=== PATIENT | male | born 1985 | race Caucasian/White ===

== ENCOUNTER 2020-04-01 21:16 | Emergency (ER) | payer OTHER, SELFPAY ==
[2020-04-01 21:19] VITALS: BP 110/77; PULSE 90; RESP 16; TEMP 36.5; O2SAT 96; BMI 26.7
--- NOTE | 2020-04-01 21:28 | ED_ITS ---
HPI - Wound/Laceration General Chief Complaint: Wound/Laceration Stated Complaint: laceration Time Seen by Provider: 04/01/20 21:27 Source: patient Mode of arrival: ambulatory Limitations: no limitations History of Present Illness Onset (ago): minute(s) (just [employer]PER[employer]) Extremity Location: right: hand Place: home Patient tetanus UTD: Yes Context: accidental and sharp object use (lid of a can) Associated symptoms: none Treatments prior to arrival: bandage Review of Systems Review of Systems: Constitutional : No Fever, No Chills, Cardiovascular : No Chest Pain, No SOB Respiratory : No Dyspnea Gastrointestinal : No abdominal pain Musculoskeletal : No Joint Swelling Skin : No rash, positive skin laceration Neuro : No Weakness, No Numbness PMFSH Past Medical History Attestation statement: The following information was validated with the patient. Medical History No known health problems Surgical History History of appendectomy Hx of tonsillectomy Social History Social History (Updated 04/01/20 @ 21:41 by Lupis Toure DO) Smoking Status: Never smoker Advance Directives: No Advance Directives Information Provided: No Physical Exam Vital Signs: Vital Signs: Last Vital Signs Temp 97.7 F 04/01/20 21:19 Pulse 90 04/01/20 21:19 Resp 16 04/01/20 21:19 BP 110/77 04/01/20 21:19 Pulse Ox 96 04/01/20 21:19 Body Mass Index 26.7 Appearance: Alert. Oriented X3. No acute distress. Eyes: Pupils equal, round and reactive to light. ENT: Pharynx normal. Neck: Normal inspection. Neck supple. CVS: Normal heart rate and rhythm. Pulses normal. Respiratory: No respiratory distress. Breath sounds normal. Abdomen: Soft and nontender. Skin: Skin warm and dry. Normal skin color. Normal skin turgor. R hand on palmar surface along 2nd MCP joint very superficial 0.5cm avulsion, full ROM, no tendon involvement Extremities: No lower extremity edema. No calf ttp Neuro: Oriented X 3. No motor deficit. No sensory deficit. Procedures Laceration Laceration 1: Site: upper extremity Side (If applicable): right Size (cm): 0.5 Description: flap and clean Depth: simple, single layer Pre-repair: wound explored and irrigated extensively Skin layer closed with: other (dermabond) MDM - Wound/Laceration MDM Narrative Medical decision making narrative: healthy 35 yo male with superficial skin avulsion - very superficial full ROM no signs of internal injury, no tendon injury, Tdap UTD, will dermabond area and send home with precautions Discharge Plan Discharge Clinical Impression: Avulsion of skin Patient Disposition: Home, Self-Care Instructions: Skin Avulsion (ED), Skin Adhesive Care (ED) Additional Instructions: return to ED for any worsening symptoms or concerns skin adhesive will fall off in 5 days, no soaking or washing dishes, showering is okay, nothing strenuous with the hand for the next 5 days til the wound is healed. Referrals: Chadd Evans, STAFFING CONSULTANT-[facility] [Primary Care Provider] - 5 days (if not better)
== END 2020-04-01 21:46 | disposition home or self-care (01) ==
PROVIDERS: Emergency Provider Emergency Medicine; PCP Nurse Practitioner Family
DX: S61.411A Laceration without foreign body of right hand, initial encounter (principal); M79.641 Pain in right hand; W26.8XXA Contact with other sharp object(s), not elsewhere classified, initial encounter; Y93.9 Activity, unspecified; Y92.000 Kitchen of unspecified non-institutional (private) residence as the place of occurrence of the external cause; Y99.9 Unspecified external cause status
CPT/HCPCS: 12001; 99284

== ENCOUNTER 2020-09-07 10:38 | Outpatient (REF) | payer OTHER, SELFPAY ==
--- NOTE | ~2020-09-07 | XR_ITS ---
EXAMINATION: XR TOES, LEFT CLINICAL INFORMATION: Pain great toe COMPARISON: None TECHNIQUE: AP view left foot and 2 views left great toe are obtained for 3 views. FINDINGS: There is mild hallux valgus first MTP approximately 20 degrees. There is no joint narrowing or erosive change or chondrocalcinosis. Bony mineralization is normal. There is no periarticular demineralization. No fracture or dislocation. XR/XR toe LT min 2V IMPRESSION: Mild hallux valgus first MTP. No joint narrowing or erosive change.
[2020-09-07 15:00] LABS: Alanine Aminotransferase 28 U/L (0-40); Albumin Level 4.9 g/dL (3.5-5.0); Alkaline Phosphatase 64 U/L (39-117); Anion Gap 15 (12-20); Aspartate Amino Transferase 26 U/L (5-37); Bilirubin Total 0.7 mg/dL (0.0-1.0); Blood Urea Nitrogen 15 mg/dL (9-16); Calcium 10.3 mg/dL (8.4-10.2); Carbon Dioxide 27 mmol/L (22-29); Chloride 106 mmol/L (96-108); Estimated Glomerular Filt Rate > 60; Glucose Random 82 mg/dL (60-115); Potassium 5.6 mmol/L (3.3-5.1); Sodium 142 mmol/L (135-145); Total Protein 7.3 g/dL (6.5-8.0); Uric Acid 7.1 mg/dL (3.4-7.0)
== END 2020-09-07 10:39 | disposition home or self-care (01) ==
LOC: HO.HMGCX 10:38
PROVIDERS: PCP Nurse Practitioner Family; Visit Provider Nurse Practitioner Family
DX: M79.675 Pain in left toe(s) (principal); S43.439A Superior glenoid labrum lesion of unspecified shoulder, initial encounter
CPT/HCPCS: 36415; 73660; 80053; 84550

== ENCOUNTER 2020-09-10 07:24 | Outpatient (REF) | payer OTHER, SELFPAY ==
[2020-09-10 12:02] LABS: Anion Gap 14 (12-20); Carbon Dioxide 26 mmol/L (22-29); Chloride 108 mmol/L (96-108); Sodium 144 mmol/L (135-145)
[2020-09-10 12:17] LABS: Alanine Aminotransferase 23 U/L (0-40); Albumin Level 4.5 g/dL (3.5-5.0); Alkaline Phosphatase 72 U/L (39-117); Anion Gap 12 (12-20); Aspartate Amino Transferase 23 U/L (5-37); Bilirubin Total 0.5 mg/dL (0.0-1.0); Blood Urea Nitrogen 15 mg/dL (9-16); Calcium 9.4 mg/dL (8.4-10.2); Carbon Dioxide 27 mmol/L (22-29); Chloride 108 mmol/L (96-108); Estimated Glomerular Filt Rate > 60; Glucose Random 51 mg/dL (60-115); Sodium 143 mmol/L (135-145); Total Protein 6.7 g/dL (6.5-8.0)
== END 2020-09-10 07:25 | disposition home or self-care (01) ==
LOC: HO.HMGCLDS 07:24
PROVIDERS: PCP Nurse Practitioner Family; Visit Provider Nurse Practitioner Family
DX: E78.5 Hyperlipidemia, unspecified (principal)
CPT/HCPCS: 36415; 80051; 80053

== ENCOUNTER 2020-09-11 07:05 | Outpatient (REF) | payer OTHER, SELFPAY ==
[2020-09-11 07:56] LABS: Glucose Random 88 mg/dL (60-115)
[2020-09-12 02:47] LABS: C Peptide 1.29 ng/mL (0.80-3.85)
[2020-09-12 07:12] LABS: Insulin Level Total 4.7 uIU/mL
[2020-09-19 13:42] LABS: Chlorpropamide None Detected; Glimepiride None Detected; Glipizide None Detected; Glyburide None Detected; Nateglinide None Detected; Pioglitazone None Detected; Repaglinide None Detected; Rosiglitazone None Detected; Tolazamide None Detected; Tolbutamide None Detected
[2020-09-23 08:32] LABS: Beta-Hydroxybutyrate 2.4 mg/dL (0.0-3.0)
== END 2020-09-11 07:06 | disposition home or self-care (01) ==
LOC: HO.LAB 07:05
PROVIDERS: Visit Provider Nurse Practitioner Family
DX: E16.2 Hypoglycemia, unspecified (principal)
CPT/HCPCS: 36415; 80337; 82010; 82947; 83525; 84206; 84681

== ENCOUNTER 2020-09-29 13:17 | Outpatient (REF) | payer OTHER, SELFPAY ==
--- NOTE | ~2020-09-29 | MR_ITS ---
EXAMINATION: MR SHOULDER WITH CONTRAST, LEFT CLINICAL INFORMATION: Left shoulder pain, mostly anterior. Aching. History of biceps tendon surgery. COMPARISON: None TECHNIQUE: MRI of the shoulder was performed following the intra-articular administration of a dilute gadolinium-containing solution (arthrogram) on a high-field scanner. FINDINGS: ROTATOR CUFF: Intact. No muscle atrophy or fatty infiltration. BICEPS: Status post tenodesis with attachment to the proximal humeral shaft anteriorly. CORACOACROMIAL ARCH: The undersurface of the acromion is curved with no subacromial spur. Minimal acromioclavicular osteoarthritis. LABRUM/CAPSULE: The superior labrum is blunted as a result of a prior tenodesis. As seen on images 15, 16, and 17/28 of series 14, there is a linear band of fluid signal undercutting a blunted anteroinferior labrum, most consistent with a labral tear between the anterior 3 o'clock position and inferior 6 o'clock position. Joint capsule is intact. GLENOHUMERAL JOINT/MARROW: Articular cartilage appears well preserved. No fracture or malalignment. No joint effusion. MR/MR shoulder LT w con IMPRESSION: Tear of the anteroinferior labrum. Prior biceps tenodesis with associated blunting of the superior labrum. Minimal acromioclavicular osteoarthritis.
--- NOTE | ~2020-09-29 | FL_ITS ---
EXAMINATION: FL ARTHROGRAM SHOULDER, LEFT CLINICAL INFORMATION: Shoulder pain. COMPARISON: None TECHNIQUE: Procedure and risks and benefits including bleeding and infection were discussed with the patient and informed consent was obtained. The left shoulder was prepped and draped in the usual sterile fashion. The skin and soft tissues were anesthetized with 1% lidocaine plain. Using fluoroscopic guidance and a 22-gauge spinal needle, access to the shoulder joint was obtained. 1 to 2 mL of Omnipaque 300 was injected fluoroscopically confirming adequate placement in the joint space. Subsequently, a mixture of dilute Gadavist mixed with saline and 1% lidocaine plain was injected into the left shoulder joint pre-MRI. FINDINGS: Single image demonstrates adequate needle placement in the joint space. FLUOROSCOPY TIME: 0.3 minutes DOSE AREA PRODUCT: 0.982 Gycm2 FL/FL arthrogram shoulder LT IMPRESSION: Left shoulder pre-MRI arthrogram.
[2020-09-29] MEDS: iohexoL 300 MG/ML 50 ML INFUS..BTL INTRAARTIC (14:24)
== END 2020-09-29 13:18 | disposition home or self-care (01) ==
LOC: HO.XRAY 13:17
PROVIDERS: Visit Provider Nurse Practitioner Family
DX: S43.432A Superior glenoid labrum lesion of left shoulder, initial encounter (principal)
CPT/HCPCS: 23350; 73040; 73222; A9585; Q9967

== ENCOUNTER 2020-11-06 09:00 | Outpatient (RCR) | payer OTHER, SELFPAY ==
--- NOTE | 2020-10-13 09:03 | MHC.PT.EP ---
[facility] [place] [facility] [place] Office [address] Aidee Calvillo [address] [phone] F: [phone] F: [phone] F: [phone] F: [phone] Physical Therapy Plan of Care Date of Evaluation: Date of Surgery: 2012 Diagnosis: SLAP tear L shoulder Assessment: 35 y/o RHD male referred to PT with L SLAP tear. Of note, he underwent biceps tenodesis in 2012. His shoulder has become more painful recently 3-4 months ago with increase in workout regime (includes tricep dips, push-ups, pull-ups), but he denies locking and catching episodes. Currently pain with lifting overhead, pushing, pulling, work-out (push-ups, pull-ups. lateral raises, overhead raise, bench press). Examination shows slightly decreased L shoulder AROM, decreased B scapular strength, decreased tissue mobility, hypomobile posterior capsule, and increased pain. Recommend PT 2x/week for 4 weeks to address impairments, implement HEP, and optimize functional mobility. Frequency and Duration: The patient will be seen 2x/week for 4 weeks Short Term Goals: 2 weeks 1. I with HEP 2. L shoulder posterior capsule mobility WNL to improve mechanics 3. Pt will modify workout program appropriately such as bench press maintaining elbows to neutral Adjunct Professor Goals: 4 weeks 1. I with HEP and self management of sx 2. Pt will be able to lift >10# overhead with pain < 3/10 3. Improve SPADI to 40/130 (IR 58/130) Treatment Plan: Modalities to reduce pain, spasms and effusion. Manual therapy to restore motion and function. Therapeutic exercise to improve strength and flexibility. Neuromuscular re-education for posture and balance. Therapeutic activities to return to functional activities of daily living. Electronically signed by: Claudia Coppola PT Please sign and return to therapist. Thank you for your referral.
--- NOTE | 2020-11-06 12:56 | MHC.PT.DC ---
[facility] [place] Office [place] Office [place] Office [address] Aidee Calvillo [address] [phone] F: [phone] F: [phone] F: [phone] F: [phone] Physical Therapy Discharge Report Diagnosis: SLAP tear L shoulder Date of Surgery: 2012 Date of Evaluation: 10/13/20 Date of Discharge: 11/06/20 Treatments to Date: 8 Cancellations to Date: 0 No Shows to Date: 0 Discharge Status: Achieved Goals Improved Function Independent with HEP Discharge Summary: Pt appropriate for d/c secondary to meeting all goals, SPADI 2/130, reporting painfree with full mobility, and I with HEP. Pt educated on continuing HEP progressing sets/reps to tolerance to continue to improve endurance. Electronically signed by: Claudia Coppola PT Please sign and return to therapist. Thank you for your referral.
== END 2020-11-06 12:57 | disposition home or self-care (01) ==
LOC: HO.PTCHIC 09:00
PROVIDERS: PCP Nurse Practitioner Family; Visit Provider Nurse Practitioner Family
DX: S43.432A Superior glenoid labrum lesion of left shoulder, initial encounter (principal)
CPT/HCPCS: 97110; 97112; 97140; 97161; 97530